=== PATIENT | male | born 1945 | race Caucasian/White ===

== ENCOUNTER 2021-04-25 20:45 | Inpatient (IN) | payer MEDICARE ==
[~2021-04-25] VITALS: Ht 185.4 cm; Wt 86.2 kg
[~2021-04-25 20:45] MED LIST: PERCOCET 5/325 T1 EA PO
[2021-04-25 21:11] LABS: HEMOGLOBIN 14.8 gm/dl (14.0-17.5); RED BLOOD COUNT 4.96 M/UL (4.20-5.50); WHITE BLOOD COUNT 6.1 K/UL (4.5-11.0)
[2021-04-26 04:16] LABS: RED BLOOD COUNT 4.47 M/UL (4.20-5.50)
[2021-04-26 04:41] LABS: WHITE BLOOD COUNT 3.9 K/UL (4.5-11.0)
[2021-04-27 03:05] LABS: HEMOGLOBIN 12.5 gm/dl (14.0-17.5); RED BLOOD COUNT 4.22 M/UL (4.20-5.50); WHITE BLOOD COUNT 3.4 K/UL (4.5-11.0)
[2021-04-28 02:23] LABS: HEMOGLOBIN 13.3 gm/dl (14.0-17.5); RED BLOOD COUNT 4.64 M/UL (4.20-5.50)
[2021-04-28 02:32] LABS: WHITE BLOOD COUNT 4.5 K/UL (4.5-11.0)
[2021-04-28] MEDS ORDERED: AMLODIPINE BESYL5 MG PO (14:13)
[2021-04-28] MEDS ORDERED: ASPIRIN EC81 MG PO (14:13)
[2021-04-28] MEDS ORDERED: LEVOFLOXACIN500 MG PO (14:13)
[2021-04-29 02:52] LABS: HEMOGLOBIN 13.6 gm/dl (14.0-17.5); RED BLOOD COUNT 4.71 M/UL (4.20-5.50)
[2021-04-29 02:55] LABS: WHITE BLOOD COUNT 5.7 K/UL (4.5-11.0)
[2021-04-29 14:27] LABS: HEMOGLOBIN 13.3 gm/dl (14.0-17.5); RED BLOOD COUNT 4.51 M/UL (4.20-5.50); WHITE BLOOD COUNT 6.8 K/UL (4.5-11.0)
[2021-04-30 02:09] LABS: HEMOGLOBIN 12.5 gm/dl (14.0-17.5); RED BLOOD COUNT 4.28 M/UL (4.20-5.50)
[2021-04-30 02:23] LABS: WHITE BLOOD COUNT 4.9 K/UL (4.5-11.0)
[2021-05-01 02:19] LABS: HEMOGLOBIN 12.9 gm/dl (14.0-17.5); RED BLOOD COUNT 4.41 M/UL (4.20-5.50)
== END 2021-05-01 11:27 | disposition home or self-care (01) | DRG 163 ==
LOC: ER1 20:45 → CDU 04-26 00:49 → PROG CARE 04-26 00:49
PROVIDERS: Internal Medicine; Internal Medicine Pulmonary Disease; Physician Assistant; ADMIT Internal Medicine
PROC: B24BZZZ Ultrasonography of Heart with Aorta (ICD-10-PCS; 2021-04-26)
PROC: 0W3Q8ZZ Control Bleeding in Respiratory Tract, Via Natural or Artificial Opening Endoscopic (ICD-10-PCS; 2021-04-29)
PROC: 0B9F8ZX Drainage of Right Lower Lung Lobe, Via Natural or Artificial Opening Endoscopic, Diagnostic (ICD-10-PCS; 2021-04-29)
PROC: 0BBF8ZX Excision of Right Lower Lung Lobe, Via Natural or Artificial Opening Endoscopic, Diagnostic (ICD-10-PCS; principal; 2021-04-29 13:20)
DX: C34.31 Malignant neoplasm of lower lobe, right bronchus or lung (principal); N17.0 Acute kidney failure with tubular necrosis; I21.A1 Myocardial infarction type 2; I13.0 Hypertensive heart and chronic kidney disease with heart failure and stage 1 through stage 4 chronic kidney disease, or unspecified chronic kidney disease; J98.11 Atelectasis; E44.0 Moderate protein-calorie malnutrition; I42.9 Cardiomyopathy, unspecified; T79.6XXA Traumatic ischemia of muscle, initial encounter; I25.10 Atherosclerotic heart disease of native coronary artery without angina pectoris; F17.200 Nicotine dependence, unspecified, uncomplicated; I73.9 Peripheral vascular disease, unspecified; Z20.822 Contact with and (suspected) exposure to COVID-19; Z66 Do not resuscitate; E86.0 Dehydration; R91.8 Other nonspecific abnormal finding of lung field; I71.4 Abdominal aortic aneurysm, without rupture; R53.81 Other malaise; R29.6 Repeated falls; I44.7 Left bundle-branch block, unspecified; D69.6 Thrombocytopenia, unspecified; N18.32 Chronic kidney disease, stage 3b; E78.5 Hyperlipidemia, unspecified; Z95.828 Presence of other vascular implants and grafts; Z85.528 Personal history of other malignant neoplasm of kidney; Z90.5 Acquired absence of kidney; Z95.5 Presence of coronary angioplasty implant and graft; Z98.890 Other specified postprocedural states; Z83.3 Family history of diabetes mellitus; Z79.899 Other long term (current) drug therapy; Z79.82 Long term (current) use of aspirin
CPT/HCPCS: ECHO; 0240U; 36415; 70450; 71045; 71250; 72125; 80048; 80053; 81001; 82550; 82553; 83036; 83540; 83550; 83605; 83735; 83880; 84100; 84132; 84484; 84550; 85025; 85027; 85610; 85652; 85730; 86140; 87015; 87040; 87070; 87077; 87086; 87116; 87186; 87205; 87206; 88341; 88342; 93005; 93306; 94640; 94664; 94760; 96374; 97110; 97110-GP-CQ; 97116-GP-CQ; 97162; 97166; 97530; 97530-GP-CQ; 99285; C9113; J0171; J1956; J2001; J2250; J3010; J3475; J7030; J7040; Q9957; U0002

== ENCOUNTER → 2021-05-23 | Outpatient (CLI) | payer MEDICARE ==
[~2021-05-23] MED LIST changes: +AMLODIPINE BESYL5 MG PO; +ASPIRIN EC81 MG PO; +LEVOFLOXACIN500 MG PO
== END ==
LOC: MRI 10:30
DX: C64.9 Malignant neoplasm of unspecified kidney, except renal pelvis (principal); C34.91 Malignant neoplasm of unspecified part of right bronchus or lung
CPT/HCPCS: 36415; 70551; 82565

== ENCOUNTER → 2021-06-03 | Outpatient (CLI) | payer MEDICARE | LOC: EXRD 14:43 | DX: C34.90 Malignant neoplasm of unspecified part of unspecified bronchus or lung (principal) | CPT/HCPCS: 71046; 94060; 94729 ==